=== PATIENT | female | born 1970 | race Caucasian/White ===

== ENCOUNTER 2020-07-25 17:02 | Emergency (ER) | payer MEDICARE ==
[2020-07-25 17:45] LABS: BASOPHIL 0.7 % (0-2); EOSINOPHIL 0.1 % (0-5); HCT 34.4 % (37.0-47.0); HGB 10.2 g/dl (12.5-16.0); LYMPHOCYTE 12.6 % (15-48); MCH 20.5 pg (25.0-31.0); MCHC 29.7 g/dL (32.0-36.0); MCV 69.2 fL (78.0-100.0); MONOCYTE 5.6 % (0-12); MPV 9.1 fL (6.0-9.5); NEUTROPHIL 80.4 % (41-80); NRBC 0; PLT 540 K/uL (150-400); RBC 4.97 M/uL (4.20-5.40); RDW 18.7 % (11.5-14.0); WBC 10.6 K/uL (4.0-10.5)
[2020-07-25 18:02] LABS: BILIRUBIN NEGATIVE (NEGATIVE); BLOOD NEGATIVE Ery/uL (NEGATIVE); CLARITY CLEAR (CLEAR); COLOR STRAW (YELLOW); GLUCOSE (U) NORMAL (NORMAL); LEUKOCYTES NEGATIVE Leu/uL (NEGATIVE); NITRITE NEGATIVE (NEGATIVE); PROTEIN NEGATIVE (NEGATIVE); SPECIFIC GRAVITY >=1.030 (1.001-1.030); UROBILINOGEN 0.2 mg/dL (0.2-1.0)
[2020-07-25] MEDS ORDERED: IBUPROFEN800 MG PO (19:47)
[2020-07-25] MEDS ORDERED: CYCLOBENZAPRINE10 MG PO (19:47)
== END 2020-07-25 20:19 | disposition home or self-care (01) ==
LOC: FER 17:02
PROVIDERS: Nurse Practitioner Family
DX: T14.8XXA Other injury of unspecified body region, initial encounter (principal); R07.89 Other chest pain; I10 Essential (primary) hypertension; Z79.899 Other long term (current) drug therapy; Z88.0 Allergy status to penicillin; X58.XXXA Exposure to other specified factors, initial encounter
CPT/HCPCS: 36415; 71045; 81003; 83735; 84484; 85025; J1100; J1885